=== PATIENT | female | born 1940 | race Caucasian/White ===

== ENCOUNTER → 2016-11-26 | Outpatient (CLI) | payer OTHER ==
[~2016-11-26] MED LIST: AMLO5TAB2 PO; ASPI81TA81; ATOR40TA16 PO; CLON1TAB PO; GLIM4TAB PO; LATA0.002 EACH EYE; METF500T PO; METO50TA PO; OMEP40CA2 PO; OXYGENTANK NAS.CANULA; PRAM0.5T PO; TRAM50TA PO; WOMECAP2; XARE15TA PO
--- NOTE | 2016-11-28 09:53 | RSPPFT ---
DATE OF PROCEDURE: 11/26/16 COMMENTS: Spirometry shows FVC of 2.4 at 90% of predicted, FEV1 of 1.78 at 97%, FEV1/FVC ratio is normal. Flow is normal at FEF 25, FEF 50, FEF 75 and FEF 25-75. There is no response after bronchodilator treatment. Lung volumes show residual volume is normal. TLC is normal. Diffusion capacity is decreased. Flow volume loop indicates a normal pattern. IMPRESSION: 1. Normal spirometry. 2. No response after bronchodilator treatment. 3. Lung volumes are normal. 4. Decreased diffusion capacity.
== END ==
LOC: HRSP 10:55
PROVIDERS: ATTEND Specialist
DX: J44.9 Chronic obstructive pulmonary disease, unspecified (principal)
CPT/HCPCS: 94060; 94726; 94729

== ENCOUNTER 2017-04-11 06:02 | Emergency (ER) | payer OTHER, MEDICAID ==
[~2017-04-11] VITALS: Ht 162.6 cm; Wt 72.5 kg
[2017-04-11 06:11] VITALS: BP 129/80; PULSE 76; RESP 18; O2SAT 99
[2017-04-11 06:16] VITALS: BP 129/88; PULSE 68; RESP 14; TEMP 98.8; O2SAT 97
--- NOTE | 2017-04-11 06:53 | RADRPT ---
EXAM DATE/TIME: 04/11/2017 06:34 [facility] COMPARISON: No previous studies available for comparison. INDICATIONS : Trauma; fall. RADIATION DOSE: 56.35 CTDIvol (mGy) MEDICAL HISTORY : Hypertension. Diabetes mellitus type 2. SURGICAL HISTORY : Hysterectomy. Total knee replacement, left. ENCOUNTER: Initial ACUITY: 1 day PAIN SCALE: 6/10 LOCATION: cranial TECHNIQUE: Multiple contiguous axial images were obtained of the head. Using automated exposure control and adj ustment of the mA and/or kV according to patient size, radiation dose was kept as low as reasonably a chievable to obtain optimal diagnostic quality images. DICOM format image data is available electro nically for review and comparison. FINDINGS: CEREBRUM: The ventricles are normal for age. No evidence of midline shift, mass lesion, hemorrhage or acute in farction. No extra-axial fluid collections are seen. POSTERIOR FOSSA: The cerebellum and brainstem are intact. The 4th ventricle is midline. The cerebellopontine angle i s unremarkable. EXTRACRANIAL: The visualized portion of the orbits is intact. SKULL: The calvaria is intact. No evidence of skull fracture. CONCLUSION: Negative noncontrast CT Fredy Hernandez MD on April 11, 2017 at 6:47 Board Certified Radiologist. This report was verified electronically.
--- NOTE | 2017-04-11 06:54 | RADRPT ---
EXAM DATE/TIME: 04/11/2017 06:32 [facility] COMPARISON: No previous studies available for comparison. INDICATIONS : Pain due to fall. MEDICAL HISTORY : Diabetes mellitus type 2. Hypertension. Gastroesophageal reflux disease.Gastritis SURGICAL HISTORY : Hysterectomy. ENCOUNTER: Initial ACUITY: 1 day PAIN SCORE: 10/10 LOCATION: Right upper extremity shoulder. FINDINGS: Multiple view examination of the right shoulder demonstrates no evidence of fracture or dislocation. The glenohumeral and acromioclavicular joints are maintained. There is normal range of motion betwe en internal and external rotation. There is mild osteopenia. CONCLUSION: Negative trauma study. Fredy Hernandez MD on April 11, 2017 at 6:52 Board Certified Radiologist. This report was verified electronically.
--- NOTE | 2017-04-11 06:55 | RADRPT ---
EXAM DATE/TIME: 04/11/2017 06:32 [facility] COMPARISON: No previous studies available for comparison. INDICATIONS : Right hip pain due to fall. MEDICAL HISTORY : Diabetes mellitus type 2. Hypertension. Gastroesophageal reflux disease. Gastritis SURGICAL HISTORY : Hysterectomy. ENCOUNTER: Initial ACUITY: 1 day PAIN SCORE: 10/10 LOCATION: Right hip, posterior. FINDINGS: The patient is status post right hip arthroplasty. The femoral acetabular components are intact. Ther e is no acute fracture or malalignment. The soft tissues are unremarkable. CONCLUSION: Negative trauma study. Fredy Hernandez MD on April 11, 2017 at 6:53 Board Certified Radiologist. This report was verified electronically.
--- NOTE | 2017-04-11 07:04 | RADRPT ---
EXAM DATE/TIME: 04/11/2017 06:36 [facility] COMPARISON: No previous studies available for comparison. INDICATIONS : Trauma; fall. RADIATION DOSE: 36.45 CTDIvol (mGy) MEDICAL HISTORY : Hypertension. Diabetes mellitus type 2. SURGICAL HISTORY : Hysterectomy. Total knee replacement, left. ENCOUNTER: Initial ACUITY: 1 day PAIN SCALE: 6/10 LOCATION: neck TECHNIQUE: Volumetric scanning of the cervical spine was performed. Multiplanar reconstructions in the sagittal, coronal and oblique axial planes were performed. Using automated exposure control and adjustment o f the mA and/or kV according to patient size, radiation dose was kept as low as reasonably achievable to obtain optimal diagnostic quality images. DICOM format image data is available electronically f or review and comparison. FINDINGS: No acute fracture air there is moderate to severe degenerative disc disease. At C3-a left paracentral disc protrusion results in left lateral recess stenosis. At C4-5 disc osteophyte complex worse on the right side results in right lateral recess stenosis. At C5-6 broad-based posterior disc osteophyte complex results in mild AP canal stenosis. No prevertebral soft tissue swelling. No spondylolisthesis. CONCLUSION: No acute fracture. Multilevel degenerative disc disease as above. Incidental small bilateral thyroid nodules measuring up to 11 mm on the left. Roman Sue MD on April 11, 2017 at 6:55 Board Certified Radiologist. This report was verified electronically.
--- NOTE | 2017-04-11 07:07 | PD ---
HPI Chief Complaint: Fall Time Seen by Provider: 06:11 Travel History International Travel<30 days: No Contact w/Intl Traveler<30days: No Traveled to known affect area: No History of Present Illness HPI Patient is a 76-year-old female presents emergency department for evaluation of right hip pain right shoulder pain and neck pain after a fall. Patient states she was getting up to go to the bathroom this morning slipped and fell backwards hitting her head on a piece of furniture. She is on Xarelto. She states she also has a history of a hip replacement on the right. She was able to transfer scene according to EMS. States the pain is fairly mild. Denies any chest pain shortness breath abdominal pain nausea or vomiting. Symptoms mild, right hip and right femur, context is fall, associated signs symptoms as above. PFSH Past Medical History Arthritis: Yes Asthma: No Blood Disorders: No Anxiety: Yes Depression: Yes Heart Rhythm Problems: No Cancer: No Cardiovascular Problems: No High Cholesterol: Yes Chest Pain: No Congestive Heart Failure: No COPD: No Diabetes: Yes Patient Takes Glucophage: Yes Diminished Hearing: No Endocrine: Yes Gastrointestinal Disorders: Yes ( GASTRITIS) Genitourinary: No Hepatitis: No Hiatal Hernia: No Hypertension: Yes Immune Disorder: No Musculoskeletal: Yes (ARTHRITIS) Neurologic: No Psychiatric: No Reproductive: No Respiratory: No Sleep Apnea: No Thyroid Disease: No Tetanus Vaccination: Unknown Influenza Vaccination: No ?: Not Menopausal: Yes Past Surgical History Abdominal Surgery: No Body Medical Devices: KNEE AND HIP REPLACEMENT Cardiac Surgery: No Ear Surgery: No Endocrine Surgery: No Eye Surgery: No Genitourinary Surgery: No Gynecologic Surgery: Yes (HYSTERECTOMY) Hysterectomy: Yes (AGE 34) Joint Replacement: Yes (LEFT KNEE) Oral Surgery: No Thoracic Surgery: No Other Surgery: Yes Social History Alcohol Use: No Tobacco Use: No Substance Use: No Allergies-Medications (Allergen,Severity, Reaction): Coded Allergies: No Known Allergies (Verified , 03/31/16) Reported Meds & Prescriptions Reported Meds & Active Scripts Active Tramadol (Tramadol HCl) 50 Mg Tab 50 Mg PO Q4H PRN Oxygen tank (Oxygen) 1 Ea Tank 2 Liter ENRIQUE.CANULA CONTINUOUS Oxygen Concentrator Portable Gaseous 2 L/min via Nasal Cannula Continuous For 99 months Xarelto (Rivaroxaban) 15 Mg Tab 15 Mg PO BID Reported Metoprolol Tartrate 50 Mg Tab 50 Mg PO BID Omeprazole 40 Mg Cap 40 Mg PO DAILY Womens Multi (Multiple Vitamins W/ Minerals) 1 Cap Cap Aspir-81 (Aspirin) 81 Mg Tabdr Pramipexole (Pramipexole Dihydrochloride) 0.5 Mg Tab 0.5 Mg PO BID Latanoprost Opth Drops (Latanoprost) 0.005% Drops 0.005 Drop EACH EYE HS Refrigerate until opened. Amlodipine (Amlodipine Besylate) 5 Mg Tab 5 Mg PO DAILY Metformin (Metformin HCl) 500 Mg Tab 500 Mg PO BIDPC With meals Glimepiride 4 Mg Tab 4 Mg PO BIDAC Clonazepam 1 Mg Tab 1 Mg PO BID Atorvastatin (Atorvastatin Calcium) 40 Mg Tab 40 Mg PO HS Review of Systems Except as stated in HPI: all other systems reviewed are Neg Physical Exam Narrative GENERAL: Well-developed well-nourished no obvious distress SKIN: Focused skin assessment warm/dry. HEAD: Atraumatic. Normocephalic. Vital signs no raccoons eyes EYES: Pupils equal and round. No scleral icterus. No injection or drainage. ENT: No nasal bleeding or discharge. Mucous membranes pink and moist. NECK: Trachea midline. No JVD. CARDIOVASCULAR: Regular rate and rhythm. No murmur appreciated. RESPIRATORY: No accessory muscle use. Clear to auscultation. Breath sounds equal bilaterally. GASTROINTESTINAL: Abdomen soft, non-tender, nondistended. Hepatic and splenic margins not palpable. MUSCULOSKELETAL: No obvious deformities. No clubbing. No cyanosis. No edema. Some mild tenderness over the proximal right humerus as well as the proximal right femur. Range of motion of the right shoulder is limited in all ranges secondary to pain. Elbow negative, wrist negative. Left upper extremity atraumatic, left lower extremity atraumatic. Left knee atraumatic. Pulses motor and sensory intact distally in all 4 extremities. There is minimal midline cervical spine tenderness about the level of C7. NEUROLOGICAL: Awake and alert. No obvious cranial nerve deficits. Motor grossly within normal limits. Normal speech. PSYCHIATRIC: Appropriate mood and affect; insight and judgment normal. Data Data Last Documented VS Vital Signs Date Time Temp Pulse Resp B/P (MAP) Pulse Ox O2 Delivery O2 Flow Rate FiO2 04/11/17 07:33 04/11/17 07:14 64 18 98 Room Air 04/11/17 06:[address] Brain W/O Iv Contrast(Rout) (04/11/17 ) Ct Cerv Spine W/O Contrast (04/11/17 ) Hip, Uni(Ap&Lat) W Ap Pelvis (04/11/17 ) Shoulder, Complete (>2vws) (04/11/17 ) Ed Discharge Order (04/11/17 07:10) MDM Medical Decision Making Medical Screen Exam Complete: Yes Emergency Medical Condition: Yes Differential Diagnosis Hip fracture, shoulder injury, fall, head injury. Narrative Course Patient roomed in emergency department, x-rays were obtained and negative for acute injury. The patient's c-collar was placed in the emergency department and then removed. She is stable for discharge awaiting a ride home. She was offered pain medicine multiple times and declined. Diagnosis Primary Impression: Hip pain Additional Impression: Fall Disposition: 01 DISCHARGE HOME Condition: Stable Federico Wiggins MD Apr 11, 2017 07:07
[2017-04-11 07:14] VITALS: BP 145/94; PULSE 64; RESP 18; O2SAT 98
== END 2017-04-11 08:16 | disposition home or self-care (01) ==
LOC: NEPC 06:02
DX: M25.551 Pain in right hip (principal); M25.511 Pain in right shoulder; M54.2 Cervicalgia; E04.1 Nontoxic single thyroid nodule; M19.90 Unspecified osteoarthritis, unspecified site; F41.9 Anxiety disorder, unspecified; E78.00 Pure hypercholesterolemia, unspecified; E11.9 Type 2 diabetes mellitus without complications; I10 Essential (primary) hypertension
CPT/HCPCS: 70450; 72125; 73030; 73502; 99285

== ENCOUNTER 2017-06-22 14:06 | Emergency (ER) | payer OTHER, MEDICAID ==
[2017-06-22 14:23] VITALS: BP 161/68; PULSE 79; RESP 14; TEMP 98.4; O2SAT 99
--- NOTE | 2017-06-22 14:55 | PD ---
HPI Chief Complaint: Fall Time Seen by Provider: 14:23 Travel History International Travel<30 days: No Contact w/Intl Traveler<30days: No Traveled to known affect area: No History of Present Illness HPI 77-year-old female presents to emergency department for evaluation. Patient did trip and fall today landed on her right shoulder. She reported right shoulder and back pain. She did not hit her head or lose consciousness. Patient has previous drill of the right shoulder. She is concerned it may be worse. Pain is constant, 10 out of 10, exacerbated by movement. No other symptoms to report. PFSH Past Medical History Hx Anticoagulant Therapy: Yes (XARELTO) Arthritis: Yes Asthma: No Blood Disorders: No Anxiety: Yes Depression: Yes Heart Rhythm Problems: No Cancer: No Cardiovascular Problems: Yes (HTN) High Cholesterol: Yes Chest Pain: No Congestive Heart Failure: No COPD: No Diabetes: Yes Diminished Hearing: No Endocrine: Yes Gastrointestinal Disorders: Yes ( GASTRITIS) Genitourinary: No Hepatitis: No Hiatal Hernia: No Hypertension: Yes Immune Disorder: No Musculoskeletal: Yes (ARTHRITIS) Neurologic: No Psychiatric: No Reproductive: No Respiratory: No Sleep Apnea: No Thyroid Disease: No Menopausal: Yes Past Surgical History Abdominal Surgery: No Body Medical Devices: KNEE AND HIP REPLACEMENT Cardiac Surgery: No Ear Surgery: No Endocrine Surgery: No Eye Surgery: No Genitourinary Surgery: No Gynecologic Surgery: Yes (HYSTERECTOMY) Hysterectomy: Yes (AGE 34) Joint Replacement: Yes (LEFT KNEE) Oral Surgery: No Thoracic Surgery: No Other Surgery: Yes Social History Alcohol Use: No Tobacco Use: No Substance Use: No Allergies-Medications (Allergen,Severity, Reaction): Coded Allergies: No Known Allergies (Verified , 03/31/16) Reported Meds & Prescriptions Reported Meds & Active Scripts Active Tramadol (Tramadol HCl) 50 Mg Tab 50 Mg PO Q4H PRN Oxygen tank (Oxygen) 1 Ea Tank 2 Liter ENRIQUE.CANULA CONTINUOUS Oxygen Concentrator Portable Gaseous 2 L/min via Nasal Cannula Continuous For 99 months Xarelto (Rivaroxaban) 15 Mg Tab 15 Mg PO BID Reported Metoprolol Tartrate 50 Mg Tab 50 Mg PO BID Omeprazole 40 Mg Cap 40 Mg PO DAILY Womens Multi (Multiple Vitamins W/ Minerals) 1 Cap Cap Aspir-81 (Aspirin) 81 Mg Tabdr Pramipexole (Pramipexole Dihydrochloride) 0.5 Mg Tab 0.5 Mg PO BID Latanoprost Opth Drops (Latanoprost) 0.005% Drops 0.005 Drop EACH EYE HS Refrigerate until opened. Amlodipine (Amlodipine Besylate) 5 Mg Tab 5 Mg PO DAILY Metformin (Metformin HCl) 500 Mg Tab 500 Mg PO BIDPC With meals Glimepiride 4 Mg Tab 4 Mg PO BIDAC Clonazepam 1 Mg Tab 1 Mg PO BID Atorvastatin (Atorvastatin Calcium) 40 Mg Tab 40 Mg PO HS Review of Systems Except as stated in HPI: all other systems reviewed are Neg Physical Exam Narrative This is a 77-year-old female sitting in a wheelchair, no acute distress. The right upper extremity is in a sling. It is neurovascularly intact with good medical claims examiner strength, palpable distal pulses. Patient has no trauma to her head or face. She has a regular heart rate. She is with even respirations. She is awake and alert with clear speech and moves all extremities Data Data Last Documented VS Vital Signs Date Time Temp Pulse Resp B/P (MAP) Pulse Ox O2 Delivery O2 Flow Rate FiO2 06/22/17 14:23 98.4 79 14 161/68 (99) 99 Room Air Orders MDM Medical Decision Making Medical Screen Exam Complete: Yes Emergency Medical Condition: Yes Medical Record Reviewed: Yes Differential Diagnosis Fracture versus sprain versus contusion versus dislocation Narrative Course 69-year-old female presents to emergency department following a fall. Patient appears nontoxic. Medical exam is initiated in triage. Patient chooses not to stay until her workup is complete.. AMA: The risks of leaving against medical advice without further evaluation treatment were discussed with the patient. These risks include cardiac dysfunction, cardiac dysrhythmia, possible heart attack, possible stroke or . The patient indicated understanding of these risks and appeared to have the capacity to make this decision. Diagnosis Primary Impression: Injury of right upper arm Disposition: 07 AGAINST MEDICAL ADVICE Condition: Stable Lilia Thornton Jun 22, 2017 14:55
== END 2017-06-22 14:54 | disposition left against medical advice (07) ==
LOC: NEDAMB 14:06
DX: S49.91XA Unspecified injury of right shoulder and upper arm, initial encounter (principal); M54.9 Dorsalgia, unspecified; W01.0XXA Fall on same level from slipping, tripping and stumbling without subsequent striking against object, initial encounter
CPT/HCPCS: 99281